=== PATIENT | male | born 1995 | race Hispanic/Latino ===

== ENCOUNTER 2025-04-06 17:54 | Emergency (ER) | payer BC ==
[~2025-04-06] VITALS: Ht 180.3 cm; Wt 90.7 kg
[2025-04-06 18:24] LABS: RAPID GROUP A STREP negative (NEGATIVE)
[2025-04-06 18:29] LABS: SARS-CoV-2, RNA, NAAT NEGATIVE SARS CoV-2 (NEGATIVE)
[2025-04-06 18:31] LABS: BASOPHILS # (AUTO) 0.02 K/uL (0.00-0.20); BASOPHILS % (AUTO) 0.2 % (0.0-5.0); EOSINOPHILS # (AUTO) 0.01 K/uL (0.00-0.70); EOSINOPHILS % (AUTO) 0.1 % (0.0-8.0); HEMATOCRIT 43.6 % (42-54); IMMATURE GRANULOCYTE ABSOLUTE 0.03 K/uL (0-1); LYMPHOCYTES # (AUTO) 1.2 K/uL (1.0-4.8); LYMPHOCYTES % (AUTO) 13.6 % (21.0-51.0); MEAN CORPUSCULAR HEMOGLOBIN 28.3 pg (27.0-33.0); MEAN CORPUSCULAR HGB CONC 33.3 g/dL (32.0-36.0); MEAN CORPUSCULAR VOLUME 85.2 fL (79-99); MONOCYTES # (AUTO) 0.7 K/uL (0.1-1.0); MONOCYTES % (AUTO) 7.5 % (3.0-13.0); NEUTROPHILS # (AUTO) 7.1 K/uL (1.8-7.7); NEUTROPHILS % (AUTO) 78.3 % (40.0-77.0); PLATELET COUNT (AUTO) 164 K/uL (130-400); RED BLOOD CELL COUNT(AUTO) 5.12 MIL/uL (4.50-6.20); RED CELL DISTRIBUTION WIDTH 12.8 % (11.0-15.5); WHITE BLOOD COUNT (AUTO) 9.1 K/uL (4.8-10.8)
[2025-04-06 18:34] LABS: INFLUENZA TYPE A Negative For Type A (NEGATIVE); INFLUENZA TYPE B Negative For Type B (NEGATIVE)
[2025-04-06 18:40] LABS: CREATININE 1.1 mg/dL (0.5-1.3); POTASSIUM 3.3 mmol/L (3.5-5.1)
--- NOTE | 2025-04-06 19:32 | NUR ---
ASSUMED CARE AT THIS TIME PT MOVED FORM LOBBY INTO FAST TRACK
[2025-04-06] MEDS ORDERED: IOHEXOL 350 MG/ML 100ML INFUS..BTL IV ONE (19:46)
--- NOTE | 2025-04-06 20:02 | HMCIMG ---
Exam Type: CT NECK SOFT TISS W/CONTRAST Clinical Information: r/o peritonsillar abscess Comparison: None CT Dose Index (CTDI): 7.98 mGy Dose Length Product (DLP): 178.1 total mGy-cm PROTOCOL: Photography is done at 3.8 millimeter thick intervals for the head. The study was performed in the axial plane, and reconstructed and photographed in sagittal and coronal planes as well. Findings: Bilateral tonsillar enlargement is seen consistent with hyperplasia but no abscess identified. No fluid collections or masses are identified. The vascular, muscular, as well as subcutaneous structures are preserved. No significant paranasal sinus pathology is seen. The base of the skull is unremarkable. There are no significant upper airway abnormalities. IMPRESSION: Bilateral tonsillar enlargement is seen consistent with hyperplasia but no abscess identified. This study was performed using dose reduction techniques to include automated exposure control and/or adjustment of the mA and/or kV according to patient size.
[2025-04-06] MEDS: CLINDAMYCIN IVPB 300MG/50ML 50 ML IV SCH (20:04)
[2025-04-06] MEDS: 0.9%NACL 1000ML 1,000 ML IV ONE (20:04)
[2025-04-06] MEDS: ketOROlac 15MG/ML VIAL (15MG/ML) IV ONE (20:05)
[2025-04-06] MEDS: acetaMINOPHEN 500 MG TABLET PO ONE (20:05)
[2025-04-06] MEDS ORDERED: KETO10TA2 PO (20:17)
[2025-04-06] MEDS ORDERED: CLIN-141 PO (20:17)
--- NOTE | 2025-04-06 20:21 | ERN ---
General Chief Complaint: Sore Throat Stated Complaint: SWOLLEN TONSILS,FEVER,CHILLS Time Seen by MD: 18:01 Time Seen by Midlevel: 18:01 Source: patient History of Present Illness Initial Comments Patient is a 29-year-old male with no significant past medical history presenting to the emergency department for evaluation of a persistent fever and a sore throat. The patient was seen six days ago by his primary care doctor and was diagnosed with pharyngitis. Patient was given supportive treatment. The patient was evaluated at urgent care yesterday and diagnosed with strep they were he was given 1 g of ceftriaxone IM and dexamethasone. He was discharged home on azithromycin with little to no relief. He continues with persistent fever an increase in pain to his throat. Allergies: Coded Allergies: No Known Drug Allergies (Unverified Allergy, Unknown, 04/06/25) Past Medical History Past Medical History: No Pertinent History Past Surgical History: Appendectomy ROS Dictation CONSTITUTIONAL: Negative except for HPI HEAD/FACE: Negative except for HPI EENT: Negative except for HPI RESPIRATORY: Negative except for HPI GASTROINTESTINAL/ABDOMINAL: Negative except for HPI GENITOURINARY: Negative except for HPI MUSCULOSKELETAL: Negative except for HPI INTEGUMENTARY: Negative except for HPI NEUROLOGICAL/PSYCH: Negative except for HPI HEMATOLOGIC/LYMPHATIC: Negative except for HPI All Systems Negative, Except as noted above. 13 point review of systems assessed and all negative except for above. Physical Exam Physical Exam Dictation Vital Signs reviewed General Appearance: Alert, oriented x 3, no acute distress, well developed, nourished. Head and Face: non-traumatic. Eyes: PERRL, pink conjunctivas, eyelid no trauma, anterior chamber with arcus senilis. Ears: Pinnas intact and no signs of trauma or erythema ear canals clear and no discharge TM no erythema Nose: No discharge, no bleeding. Oropharynx: Mouth normal, tongue pink, Erythema to bilateral tonsils mucous membrane moist Neck: Supple, non-tender, no thyromegaly, no masses, no JVD, no bruits Breast:Deferred Chest:No tenderness, no crepitus, no paradoxical movement, no retractions Lungs:Clear, well-ventilated, symmetric, no rales, no wheezing, no rhonchi, no stridor, good breath sounds bilaterally Heart: Regular rate, regular rhythm, no murmur, no gallops Vascular: no peripheral edema, Abdomen: Soft, positive bowel sounds, nondistended, no guarding, nontender, no rebound, no masses no hepatomegaly, no splenomegaly, no Dorman's sign, no hernias. Rectal: Deferred Genital: Deferred Neurological: Normal speech, motor function intact, sensory function intact Musculoskeletal: Neck nontender, full range of motion, back nontender, full range of motion, Extremities: nontender, full range of motion Skin: Color pink, dry, no turgor, no rash, no lacerations, no abrasions, no contusions. Lymphatic: Deferred Results Laboratory and Microbiology Lab and Micro Result Laboratory Tests Test 04/06/25 18:00 04/06/25 18:24 Influenza Type A Antigen Negative For Type A Influenza Type B Antigen Negative For Type B SARS-CoV-2, RNA, NAAT NEGATIVE SARS CoV-2 Group A Streptococcus Rapid negative (NEGATIVE) White Blood Count 9.1 K/uL (4.8-10.8) Red Blood Count 5.12 MIL/uL (4.50-6.20) Hemoglobin 14.5 g/dL (14.0-18.0) Hematocrit 43.6 % (42-54) Mean Corpuscular Volume 85.2 fL (79-99) Mean Corpuscular Hemoglobin 28.3 pg (27.0-33.0) Mean Corpuscular Hemoglobin Concent 33.3 g/dL (32.0-36.0) Red Cell Distribution Width 12.8 % (11.0-15.5) Platelet Count 164 K/uL (130-400) Mean Platelet Volume 8.6 fL (7.5-10.5) Immature Granulocyte % (Auto) 0.3 % (0-1) Neutrophils (%) (Auto) 78.3 % (40.0-77.0) H Lymphocytes (%) (Auto) 13.6 % (21.0-51.0) L Monocytes (%) (Auto) 7.5 % (3.0-13.0) Eosinophils (%) (Auto) 0.1 % (0.0-8.0) Basophils (%) (Auto) 0.2 % (0.0-5.0) Neutrophils # (Auto) 7.1 K/uL (1.8-7.7) Lymphocytes # (Auto) 1.2 K/uL (1.0-4.8) Monocytes # (Auto) 0.7 K/uL (0.1-1.0) Eosinophils # (Auto) 0.01 K/uL (0.00-0.70) Basophils # (Auto) 0.02 K/uL (0.00-0.20) Absolute Immature Granulocyte (auto 0.03 K/uL (0-1) Nucleated Red Blood Cells 0.0 % (0.0-0.19) Sodium Level 140 mmol/L (136-145) Potassium Level 3.3 mmol/L (3.5-5.1) L Chloride Level 104 mmol/L (101-111) Carbon Dioxide Level 26 mmol/L (21-32) Blood Urea Nitrogen 16 mg/dL (7-18) Creatinine 1.1 mg/dL (0.5-1.3) Glomerular Filtration Rate Calc 92 mL/min (>90) Random Glucose 126 mg/dL (70-105) H Lactic Acid Level 2.0 mmol/L (0.8-2.5) Total Calcium 8.8 mg/dL (8.5-10.1) Monoscreen NEGATIVE (NEGATIVE) Labs Reviewed?: Yes MDM MDM: Patient is a 29-year-old male with no significant past medical history presenting to the emergency department for evaluation of a persistent fever and a sore throat. The patient was seen six days ago by his primary care doctor and was diagnosed with pharyngitis. Patient was given supportive treatment. The patient was evaluated at urgent care yesterday and diagnosed with strep they were he was given 1 g of ceftriaxone IM and dexamethasone. He was discharged home on azithromycin with little to no relief. He continues with persistent fever an increase in pain to his throat. On physical examination patient appears to be in mild discomfort secondary to sore throat. On examination the patient has peritonsillar swelling bilaterally. Uvula is midline. No signs of stridor or respiratory distress. CBC shows no leukocytosis. Chemistries are unremarkable. Respiratory swabs are negative. CT scan shows tonsillar enlargement with no evidence of peritonsillar abscess. We will discharged home on oral antibiotics. Next Differential diagnosis: Strep pharyngitis, mono, peritonsillar abscess There are no social concerns with this patient. Prescription drug management Prescriptions will include: Clindamycin Medical management and examination interpretation discussions were had by me with other qualified healthcare professionals as indicated for the patient's care. ED Course Orders Procedure Category Date Status Time Covid Rna Naat LAB 04/06/25 Complete 18:03 Influenza Type A & B, LAB 04/06/25 Complete Rapid 18:03 Rapid (Group A Strep) LAB 04/06/25 Complete 18:03 Cbc With Differential LAB 04/06/25 Complete 18:15 Basic Metabolic Panel LAB 04/06/25 Complete 18:15 Lactic Acid LAB 04/06/25 Complete 18:15 Monotest LAB 04/06/25 Complete 18:15 0.9%Nacl 1000ml (Ns PHA 04/06/25 Complete 1000ml) 18:30 Ketorolac PHA 04/06/25 Complete Tromethamine 15mg/Ml 18:30 Clindamycin Ivpb PHA 04/06/25 In Process 300mg/50ml (Cleocin 18:30 Ct Neck Soft Tiss CT 04/06/25 Taken W/Contrast 18:16 Acetaminophen 500mg PHA 04/06/25 Complete Tab (Tylenol 500mg T 19:30 Iohexol (Omnipaque) PHA 04/06/25 Complete 19:46 Current Medications Medications (Trade) Dose Ordered Sig/Sena Route PRN Reason Start Time Stop Time Status Last Admin Dose Admin Acetaminophen (TYLenol 500MG TAB) 1,000 mg ONCE ONCE PO 04/06/25 19:30 04/06/25 19:31 DC Clindamycin HCl/ Dextrose 50 ml @ 100 mls/hr Q8H IV 04/06/25 18:30 04/16/25 18:29 Iohexol (Omnipaque) 35,000 mg STK-MED ONCE IV 04/06/25 19:46 04/06/25 19:47 DC Ketorolac Tromethamine (toRADol) 15 mg ONCE ONCE IV 04/06/25 18:30 04/06/25 18:31 DC Sodium Chloride 1,000 ml @ 0 mls/hr ONCE ONCE IV 04/06/25 18:30 04/06/25 18:31 DC Vital Signs Date Time Temp Pulse Resp B/P (MAP) Pulse Ox O2 Delivery O2 Flow Rate FiO2 04/06/25 18:00 100.6 110 16 145/81 100 Room Air 0 DX & DISP Disposition: Discharge Departure Impression: Primary Impression: Strep pharyngitis Condition: Stable Scripts Ketorolac Tromethamine (Ketorolac Tromethamine) 10 Mg Tablet 1 TAB PO TID for pain for 5 Days, #15 TAB 0 Refills Prov: LÁZARO HERNÁNDEZ 04/06/25 Clindamycin HCl (Clindamycin HCl) 300 Mg Capsule 1 CAP PO TID for 10 Days, #30 CAP 0 Refills Prov: LÁZARO HERNÁNDEZ 04/06/25 Additional Instructions: Your blood work today is unremarkable. You have tested negative for influenza a, influenza B, COVID-19, strep, and mono. The negative strep test may be attributed to the antibiotics you started. However, given your continued symptoms you were given a loading dose of clindamycin [address] scan of the neck does not show any evidence of a peritonsillar abscess. It shows tonsillar enlargement but no drainable abscess. There was no need for transfer or ENT evaluation at this time. I will go ahead and prescribe you clindamycin which is an oral antibiotic for outpatient management. This antibiotic may cause an upset stomach and/or diarrhea. I recommend you take this antibiotic with probiotics/yogurt. I have also given you a prescription for ketorolac which should help with your pain over the next couple of days. Follow up with your primary care doctor in 2-3 days for repeat evaluation. Return to the ER for any new or worsening symptoms. Time of Disposition: 20:14 I have reviewed the case, and I agree with, Diagnosis and Plan I performed the substantive portion of the visit. I have reviewed and personally made and approve the management plan that is documented in the note by myself or the NEERAJ. I acknowledge for responsibility for the patient's management plan. LÁZARO HERNÁNDEZ Apr 06, 2025 20:21
[2025-04-06 20:40] VITALS: BP 131/76; PULSE 95; RESP 16; TEMP 98.9; O2SAT 100
== END 2025-04-06 20:54 | disposition home or self-care (01) ==
LOC: EDH 17:54
DX: J02.0 Streptococcal pharyngitis (principal); Z20.822 Contact with and (suspected) exposure to COVID-19; Z90.49 Acquired absence of other specified parts of digestive tract
CPT/HCPCS: 99285; 96374; 70491; 87635; 96375; 80048; 85025; 87880; 86308; 87804 ×2; 83605; 36415; J1885; J7030; J3490; Q9967